=== PATIENT | male | born 1960 | race Caucasian/White ===

== ENCOUNTER 2018-04-12 21:52 | Emergency (ER) | payer OTHER ==
[~2018-04-12] VITALS: Ht 182.9 cm; Wt 99.3 kg
[~2018-04-12 21:52] MED LIST: FLEXERIL PO; IBUPROFEN 800800 M1 PO; NORCO 5-325 TA1 EACH PO
[2018-04-12 22:08] LABS: ABSOLUTE BASOPHILS 0.1 thou/uL (0.0-0.2); ABSOLUTE EOSINOPHILS 0.2 thou/uL (0.0-0.7); ABSOLUTE LYMPHOCYTES 2.7 thou/uL (0.8-5.3); ABSOLUTE MONOCYTES 0.5 thou/uL (0.0-1.2); ABSOLUTE NEUTROPHILS 2.9 thou/uL (1.6-8.1); BASOPHILS 1.3 %; EOSINOPHILS 2.9 %; HEMATOCRIT 45.1 % (42.0-52.0); HEMOGLOBIN 15.9 gm/dL (14.0-18.0); LYMPHOCYTES 42.5 %; MCH 35.3 pg (26.0-34.0); MCHC 35.3 g/dL (28.0-37.0); MCV 99.8 fL (80.0-100.0); MPV 8.4 fl. (7.2-11.1); NUCLEATED RBCS 0 /100WBC; PLATELET COUNT* 62 thou/uL (150-400); POLYS 45.3 %; RBC 4.52 mil/uL (4.50-6.00); RDW-CV 14.7 % (10.5-14.5); WBC 6.4 thou/uL (4.0-11.0)
[2018-04-12 22:17] LABS: ANION GAP 4 mmol/L (7-16); BUN 7 mg/dL (7-18); CALCIUM 8.8 mg/dL (8.5-10.1); CHLORIDE 101 mmol/L (98-107); CO2 32 mmol/L (21-32); CREATININE 0.8 mg/dL (0.6-1.3); GLUCOSE 97 mg/dL (70-99); POTASSIUM 3.6 mmol/L (3.5-5.1); SODIUM 137 mmol/L (136-145)
[2018-04-12 22:19] LABS: APTT 31.5 Seconds (25.0-31.3); INR 1.3; PROTIME 13.1 Seconds (9.20-11.50)
[2018-04-12 22:28] LABS: ALBUMIN 3.2 g/dL (3.4-5.0); ALKALINE PHOSPHATASE 113 U/L (46-116); LIPASE 209 U/L (73-393); NT-PRO BRAIN NAT PEPTIDE 227 pg/mL (<300); SGOT 104 U/L (15-37); SGPT 99 U/L (30-65); TOTAL BILIRUBIN 1.2 mg/dL (<0.1-1.0); TOTAL PROTEIN 7.5 g/dL (6.4-8.2); TROPONIN-I LEVEL <0.06 ng/mL (<0.06)
[2018-04-13 00:15] VITALS: BP 128/68
--- NOTE | 2018-04-13 15:39 | EKG ---
[place] [address] ELECTROCARDIOGRAM REPORT Name: FLETCHER MARION [id number] Admission: 04/12/18 Attend Phys: Discharge: 04/13/18 Date of : 56 Report #: [id number] THIS REPORT FOR: //name// [facility] ED Test Date: 2018-04-12 Test Time: 21:59:11 Pat Name: FLETCHER MARION Department: Room: Gender: M Time Buyer: BENTLEY : 1960 Requested By: Maryann Rivera Order Number: [id number] MD: Vazquez Mobley Measurements Intervals Garvin Rate: 52 P: 47 GA: 155 QRS: 22 QRSD: 103 T: 132 QT: 482 QTc: 449 Interpretive Statements Sinus rhythm Probable left atrial enlargement Abnormal T, consider ischemia, lateral leads No previous ECG available for comparison Electronically Signed On 04-13-2018 15:38:48 [facility] by Vazquez Mobley [email or web address] <ELECTRONICALLY SIGNED> By: Vazquez Mobley MD, [facility] 04/13/18 1538 [id number] Vazquez Mobley MD, FACC /EPI
== END 2018-04-13 00:16 | disposition short-term general hospital (02) ==
LOC: M.ERS 21:52
PROVIDERS: Personal Emergency Response Attendant
DX: I71.01 Dissection of thoracic aorta (principal); F17.210 Nicotine dependence, cigarettes, uncomplicated

== ENCOUNTER → 2019-02-02 | Outpatient (CLI) | payer OTHER ==
[2019-02-02 10:30] LABS: ABSOLUTE BASOPHILS 0.1 thou/uL (0.0-0.2); ABSOLUTE EOSINOPHILS 0.1 thou/uL (0.0-0.7); ABSOLUTE LYMPHOCYTES 1.9 thou/uL (0.8-5.3); ABSOLUTE MONOCYTES 0.5 thou/uL (0.0-1.2); ABSOLUTE NEUTROPHILS 3.8 thou/uL (1.6-8.1); EOSINOPHILS 2.2 %; HEMATOCRIT 49.9 % (42.0-52.0); HEMOGLOBIN 17.7 gm/dL (14.0-18.0); LYMPHOCYTES 29.9 %; MCHC 35.4 g/dL (28.0-37.0); MCV 96.1 fL (80.0-100.0); MONOCYTES 8.1 %; NUCLEATED RBCS 0 /100WBC; PLATELET COUNT* 84 thou/uL (150-400); POLYS 58.8 %; RDW-CV 14.5 % (10.5-14.5); WBC 6.4 thou/uL (4.0-11.0)
[2019-02-02 10:40] LABS: ALBUMIN 3.8 g/dL (3.4-5.0); CALCIUM 8.3 mg/dL (8.5-10.1); CREATININE 0.7 mg/dL (0.6-1.3); POTASSIUM 3.9 mmol/L (3.5-5.1); TOTAL BILIRUBIN 1.4 mg/dL (<0.1-1.0)
[2019-02-02 12:01] LABS: PLATELET ESTIMATE ADEQUATE; TARGET CELLS 1+; TEARDROPS 1+
[2019-02-02 21:05] LABS: HEMOGLOBIN 17.3 g/dL (13.0-17.7)
[2019-02-02 22:07] LABS: HIV-1/HIV-2 ANTIBODY Non Reactive (Non Reactive)
[2019-02-03 07:08] LABS: HEPATITIS B SURFACE AG Negative (Negative)
--- NOTE | 2019-02-04 12:04 | HEMONC ---
[address] [address] HEMATOLOGY ONCOLOGY NOTE Name: FLETCHER MARION [facility] [id number] Admission: 02/02/19 Attend Phys: Gissel Moon MD Discharge: Date of : 56 Report #: [id number] THIS REPORT FOR: //name// CC: Gissel Pepper DO DATE OF SERVICE: 02/02/2019 CLINIC NOTE REASON FOR CONSULTATION: Thrombocytopenia. SUBJECTIVE: A 58-year-old male who has been evaluated because of thrombocytopenia. Reviewing his records showed that his platelet counts were 82,000 back in 07/12/2013 and in 03/2018, it was 62. Prior to that in 2002, platelet count was within normal range. The patient denies any active symptoms like epistaxis, gum bleed, hematuria or black stool. The patient denies any B symptoms like fever, chills, night sweats or weight loss. He denies any abdominal pain, nausea or vomiting. The patient reported that he has been drinking 3-6 beers on a daily basis since the age of 15. Reviewing his imaging showed mild fatty infiltrates of the liver back in 2013. His CT scan in 03/2018 showed mild nodular appearance suggestive of cirrhosis with mild splenomegaly. The patient told me today that he has been diagnosed with hepatitis, not sure exactly which type. REVIEW OF SYSTEMS: All systems reviewed. It was negative except the above. PAST MEDICAL HISTORY: Hypertension, liver cirrhosis. PAST SURGICAL HISTORY: None. MEDICATIONS: Amlodipine 10 mg p.o. daily, aspirin 81 mg p.o. daily, carvedilol 6.25 mg p.o. daily, tamsulosin 0.4 mg p.o. daily. SOCIAL HISTORY: He has been an active smoker since the age of 10, half a pack per day. He drinks alcohol with 3-6 beers on a daily basis for the last 40 years. ALLERGIES: None known allergies. PHYSICAL EXAMINATION: VITAL SIGNS: Today, blood pressure is 177/98, pulse is 73, respirations 18, temperature is 97.8, sat is 97% on room air. GENERAL: The patient was sitting in chair, was not in acute distress. LUNGS: Clear [place] [address] HEMATOLOGY ONCOLOGY NOTE Name: FLETCHER MARION [facility]#: [id number] Admission: 02/02/19 Attend Phys: Gissel Moon MD Discharge: Date of : 56 Report #: [id number] HEART: Regular rate and rhythm. S1, S2 within normal limits. ABDOMEN: Soft, nontender, nondistended, bowel sounds positive. EXTREMITIES: No edema, no cyanosis, no clubbing. ASSESSMENT AND PLAN: A 58-year-old male who had a prior history of fatty liver. Most recent imaging suggests liver cirrhosis and mild splenomegaly. He has been a heavy drinker for the last 40 years with a known history of hepatitis was evaluated because of thrombocytopenia. RECOMMENDATIONS: I believe the etiology of his thrombocytopenia related to liver disease rather than a bone marrow process. However, I would like to repeat CBC with a peripheral blood smear, obtain workup including acute hepatitis panel, HIV, B12, folate and obtain CT scan of the abdomen to evaluate for screening for HCC. I discussed with the patient the importance of quit drinking, smoking cessation with lifestyle including activity and diet. The patient verbally understands and his who was present today with him. <ELECTRONICALLY SIGNED> By: Gissel Moon MD 02/04/19 1204 [id number] Moon MD /nt
== END ==
LOC: M.RTH 04:24
PROVIDERS: Internal Medicine
DX: D69.6 Thrombocytopenia, unspecified (principal)

== ENCOUNTER → 2019-02-15 | Outpatient (CLI) | payer OTHER | LOC: M.CT 07:35 | DX: D69.6 Thrombocytopenia, unspecified (principal); K74.60 Unspecified cirrhosis of liver; R16.1 Splenomegaly, not elsewhere classified ==